=== PATIENT | female | born 1950 | race Asian ===

== ENCOUNTER 2020-02-14 06:54 | Day surgery (SDC) | payer OTHER ==
[~2020-02-14] VITALS: Ht 160 cm; Wt 43.2 kg
[2020-02-14] MEDS ORDERED: LIDOCAINE 2% 30 ML JELLY TP ONE (06:55)
[2020-02-14] MEDS ORDERED: ALBUTEROL SULFATE 2.5 MG/0.5 ML NEB SOLUTION NEB ONE (06:55)
[2020-02-14] MEDS ORDERED: BENZOCAINE 20% 50 MCG/SPRAY 57 GM TP ONE (06:55)
[2020-02-14] MEDS ORDERED: LIDOCAINE 4% 50 ML SOLUTION TP ONE (06:55)
[2020-02-14] MEDS ORDERED: SIMV-259 PO (07:24)
[2020-02-14] MEDS ORDERED: MIRT30 PO (07:24)
[2020-02-14] MEDS ORDERED: MONT10TA21 PO (07:24)
[2020-02-14] MEDS ORDERED: MV-M1TAB2 PO (07:24)
[2020-02-14] MEDS ORDERED: ZOLP-280 PO (07:24)
[2020-02-14] MEDS ORDERED: BIOT5000 PO (07:24)
[2020-02-14] MEDS ORDERED: SITA100 PO (07:24)
[2020-02-14] MEDS ORDERED: LOSA25TA71 PO (07:24)
[2020-02-14] MEDS ORDERED: SODIUM CHLORIDE 0.9% 1,000 ML IV ONE (07:30)
[2020-02-14] MEDS ORDERED: SODIUM CHLORIDE 0.9% 1,000 ML ONE (07:36)
[2020-02-14 07:59] LABS: GLUCOMETER DEV NAME(LOC) SDS.; GLUCOSE,POINT OF CARE 121 MG/DL (70-110)
[2020-02-14] MEDS ORDERED: MIDAZOLAM HCL 2 MG/2 ML VIAL ONE (08:03)
[2020-02-14] MEDS ORDERED: FentaNYL CITRATE-PF 100 MCG/2 ML VIAL ONE (08:03)
[2020-02-14] MEDS ORDERED: MethylPREDNISolone SOD SUCC 125 MG/2 ML VIAL IVP ONE (08:45)
[2020-02-14] MEDS ORDERED: MethylPREDNISolone SOD SUCC 125 MG/2 ML VIAL ONE (08:49)
[2020-02-14] MEDS ORDERED: OXYGEN THERAPY IH SCH (20:00)
== END 2020-02-14 10:25 | disposition home or self-care (01) ==
LOC: SURGERY 06:54
PROVIDERS: ATTEND Internal Medicine Critical Care Medicine
DX: J38.4 Edema of larynx (principal); B37.0 Candidal stomatitis; E78.5 Hyperlipidemia, unspecified
CPT/HCPCS: 31623; 31624; 71045; 82962; 87015; 87070; 87101; 87205; 87206; 87220; J2250; J2930; J3010; J7030; J7613; Z7610